=== PATIENT | female | born 1940 | race Caucasian/White ===

== ENCOUNTER 2016-12-25 12:23 | Observation (INO) | payer MEDICARE, BC ==
[~2016-12-25] VITALS: Ht 149.9 cm; Wt 50.0 kg
[~2016-12-25 12:23] MED LIST: ALEVE 220MG220 MG PO; PREMARIN0.45 MG PO; SYNTHROID0.075 MG/T PO
[2016-12-25 12:48] VITALS: BP 130/55; PULSE 82; TEMP 97.7
[2016-12-25 13:37] LABS: BASO # 0.1 (0.0-0.2); BASO % 0.5 % (0.0-2.0); EOS # 0.1 (0.0-0.7); EOS % 1.3 % (0-4.0); GRAN % 65.5 % (42.2-75.2); HEMATOCRIT 39.4 % (37.0-47.0); HEMOGLOBIN 12.9 g/dl (12.5-16.0); LYMPH # 2.5 (1.2-3.4); LYMPH % 27.4 % (20.0-51.0); MEAN CELL VOLUME 90 fl (80.0-100.0); MEAN CORPUSCULAR HEMOGLOBIN 30 pg (27.0-31.0); MEAN CORPUSCULAR HGB CONC 33 g/dl (33.0-37.0); MEAN PLATELET VOLUME 10.6 fl (7.4-10.4); MONO # 0.5 (0.1-0.6); MONO % 5.1 % (1.7-9.3); PLATELET COUNT 237 K/mm3 (130-400); RED BLOOD COUNT 4.38 M/mm3 (4.10-5.30); REDCELL DISTRIBUTION WIDTH-CV 12.7 % (11.5-14.5); WHITE BLOOD COUNT 9.2 K/mm3 (4.8-10.8)
[2016-12-25 13:47] LABS: ALBUMIN 4.1 gm/dL (3.5-5.0); BILIRUBIN,TOTAL 0.7 mg/dL (0.0-1.0); CALCIUM 10.1 mg/dL (8.4-10.2); CREATININE, serum 0.7 mg/dL (0.52-1.25); POTASSIUM 4.1 mmol/L (3.4-5.0); TOTAL PROTEIN 7.3 gm/dL (6.4-8.2)
[2016-12-25 14:16] LABS: THYROID STIMULATING HORMONE 0.022 uIU/mL (0.465-4.680)
[2016-12-25] MEDS ORDERED: ZESTRIL 10MG10 MG PO (15:56)
[2016-12-25] MEDS ORDERED: OS-CAL 500 + D1 TAB PO (15:56)
[2016-12-25] MEDS ORDERED: PRILOSEC 20MG20 MG PO (16:01)
[2016-12-25] MEDS ORDERED: ZANTAC 7575 MG PO (16:01)
[2016-12-25] MEDS ORDERED: XANAX 0.5MG0.5 MG PO (16:03)
[2016-12-25] MEDS ORDERED: AMBIEN 5MG TABLE5 MG PO (16:04)
[2016-12-25] MEDS ORDERED: LEVOXYL0.1 MG PO (16:05)
[2016-12-25 16:15] VITALS: BP 199/71; PULSE 74; TEMP 98.9
[2016-12-25 17:49] LABS: PH 9 (5-8); SQUAMOUS EPITHELIAL 0-2 /hpf; URINE APPEARANCE Clear; URINE BACTERIA None Seen /hpf; URINE BILIRUBIN Negative (NEGATIVE); URINE BLOOD Negative (NEGATIVE); URINE COLOR Straw; URINE GLUCOSE Negative (NEGATIVE); URINE KETONE Negative (NEGATIVE); URINE RBC 0-2 /hpf; URINE UROBILINOGEN Negative (NEGATIVE); URINE WBC 0-2 /hpf
[2016-12-25] MEDS ORDERED: PAXIL 20MG20 MG PO (18:15)
[2016-12-25 20:40] VITALS: BP 125/59; PULSE 93; TEMP 98.5
[2016-12-26 07:37] VITALS: BP 129/64; PULSE 85; TEMP 97.8
[2016-12-26 12:00] VITALS: BP 121/61; PULSE 102; TEMP 97.8
[2016-12-28 09:53] LABS: DRUG SCREEN BLD - ALCOHOL None Detected (()); TRICYCLIC SCREEN BLOOD Not Detected (())
[2016-12-28 10:16] LABS: BENZODIAZEPINE SCREEN BLOOD Positive (()); SALICYLATE SCREEN BLOOD Not Detected (())
== END 2016-12-26 13:10 | disposition home or self-care (01) ==
LOC: MEDICAL 12:23
DX: F03.90 Unspecified dementia, unspecified severity, without behavioral disturbance, psychotic disturbance, mood disturbance, and anxiety (principal); F19.10 Other psychoactive substance abuse, uncomplicated; F17.210 Nicotine dependence, cigarettes, uncomplicated
CPT/HCPCS: G0378; G0379; Q9967